=== PATIENT | male | born 1995 | race Caucasian/White ===

== ENCOUNTER 2022-07-23 08:49 | Outpatient (CLI) | payer BC, SELFPAY | END 2022-07-23 08:50 | disposition home or self-care (01) | PROVIDERS: PCP Family Medicine; Visit Provider Family Medicine | DX: Z00.00 Encounter for general adult medical examination without abnormal findings (principal); R00.0 Tachycardia, unspecified; Z13.6 Encounter for screening for cardiovascular disorders | CPT/HCPCS: 80048; 80061; 84443; 85025 ==

== ENCOUNTER 2022-08-06 15:38 | Outpatient (CLI) | payer BC, SELFPAY | END 2022-08-06 15:39 | disposition home or self-care (01) | LOC: RAD 15:38 | PROVIDERS: PCP Family Medicine; Visit Provider Family Medicine | DX: R01.1 Cardiac murmur, unspecified (principal); I34.0 Nonrheumatic mitral (valve) insufficiency | CPT/HCPCS: 93306 ==